=== PATIENT | female | born 1965 | race Caucasian/White ===

== ENCOUNTER 2017-08-15 22:48 | Emergency (ER) | payer SELFPAY ==
--- NOTE | 2017-08-16 05:02 | Emergency Department Report ---
ED Headache HPI - General Chief Complaint: Headache Stated Complaint: HEADACHE/ST ELEVATION Time Seen by Provider: 08/16/17 04:50 - History of Present Illness Initial Comments: Patient is 51 years old female is here for hypertension presented to the ER with a chief complaint of pressure in her head and left subconjunctival hemorrhage. Patient stated that her headache is similar to what she had before but she is worried about the bleeding that she having had left eye. Patient denied any visual disturbances or decrease vision. She denied any weakness, numbness or tingling sensation, bowel or bladder incontinence. No fever or stiff neck. Timing/Duration: 24 hours Quality: moderate Head Injury Location: global Recent Head Trauma: no recent headache/trauma, frequent headaches Modifying Factors: worse with: cold therapy, exposure to light, immobilization, medication, movement, rest, other Associated Symptoms: denies: denies symptoms, confusion, fatigue, facial pain, fever/chills, flushing, loss of consciousness, nausea/vomiting, nasal congestion , nasal drainage, numbness in legs/feet, rash, seizures, sinus infection, stiff neck, vision changes, weakness, other Allergies/Adverse Reactions: Allergies No Known Allergies Allergy (Unverified 08/15/17 23:12) ED Review of Systems ROS: Stated complaint: HEADACHE/ST ELEVATION Other details as noted in HPI Comment: All other systems reviewed and negative Constitutional: denies: chills, fever Eyes: denies: eye pain, eye discharge, vision change Respiratory: denies: cough, shortness of breath Cardiovascular: denies: chest pain, palpitations, dyspnea on exertion Gastrointestinal: denies: abdominal pain, nausea, vomiting, diarrhea, constipation, hematemesis, melena, hematochezia Skin: denies: rash, lesions, change in color, change in hair/nails Neurological: headache. denies: weakness, numbness, paresthesias, confusion, abnormal gait ED Past Medical Hx - Past Medical History Previous Medical History?: Yes Hx Hypertension: Yes (h/o hypotension also) Additional medical history: compression in neck and spine s/p head injury 2013 - Surgical History Past Surgical History?: Yes Additional Surgical History: x1 - Social History Smoking Status: Never Smoker Substance Use Type: None ED Physical Exam - General Limitations: No Limitations General appearance: alert, in no apparent distress - Head Head exam: Present: atraumatic, normocephalic, normal inspection - Eye Eye exam: Present: other (subconjunctival hemorrhage left eye.) - ENT ENT exam: Present: normal exam, normal orophraynx, mucous membranes moist - Neck Neck exam: Present: normal inspection, full ROM. Absent: tenderness, meningismus, lymphadenopathy, thyromegaly - Respiratory Respiratory exam: Present: normal lung sounds bilaterally. Absent: respiratory distress, wheezes, rales, rhonchi, stridor, decreased breath sounds, prolonged expiratory - Cardiovascular Cardiovascular Exam: Present: regular rate, normal rhythm, normal heart sounds - GI/Abdominal GI/Abdominal exam: Present: soft, normal bowel sounds. Absent: distended, tenderness, guarding, rebound, rigid, organomegaly, mass, bruit, pulsatile mass , hernia - Extremities Exam Extremities exam: Present: normal inspection, full ROM, normal capillary refill - Back Exam Back exam: Present: normal inspection, full ROM. Absent: tenderness, CVA tenderness (R), CVA tenderness (L), muscle spasm, paraspinal tenderness, vertebral tenderness, rash noted - Neurological Exam Neurological exam: Present: alert, oriented X3, CN II-XII intact, normal gait, reflexes normal. Absent: motor sensory deficit - Skin Skin exam: Present: warm, intact, normal color ED Course Vital Signs 08/15/17 23:12 Temperature 97.4 F L Pulse Rate 64 Respiratory 18 Rate Blood Pressure 113/73 O2 Sat by Pulse 96 Oximetry Critical care attestation.: If time is entered above; I have spent that time in minutes in the direct care of this critically ill patient, excluding procedure time. ED Disposition Clinical Impression: Headache, Subconjunctival hemorrhage Disposition: DC-01 TO HOME OR SELFCARE Is pt being admited?: No Condition: Stable Instructions: Subconjunctival Hemorrhage (ED) Referrals: PRIMARY CARE, [Primary Care Provider] - 3-5 Days
[2017-08-16 05:52] VITALS: BP 101/57
[2017-08-16] MEDS ORDERED: TORADOL ONE (06:09)
[2017-08-16] MEDS ORDERED: TORADOL IV ONE (06:16)
--- NOTE | 2017-08-17 13:54 | Cat Scan Report ---
FINAL REPORT EXAM: CT HEAD/BRAIN WO CON HISTORY: "pressure in head", h/o head injury TECHNIQUE: CT evaluation was performed of the head without the use of intravenous contrast administration. PRIORS: None. FINDINGS: Normal density, size and configuration of the brain parenchyma and CSF containing spaces. No evidence of acute hemorrhage. no mass effect, edema or shift of midline structures. Visualized paranasal sinuses are clear. No pathologic fluid collection. Calvarium is normal. IMPRESSION: No CT evidence of acute intracranial process. COMMENT: If continued symptoms, consider dedicated MRI of the brain for further evaluation.
== END 2017-08-16 06:19 | disposition home or self-care (01) ==
LOC: ED 22:48
DX: H11.32 Conjunctival hemorrhage, left eye (principal); I10 Essential (primary) hypertension
CPT/HCPCS: 70450; 96374; 99283; J1885

== ENCOUNTER 2020-07-27 16:25 | Emergency (ER) | payer MEDICARE, OTHER ==
--- NOTE | 2020-07-27 16:49 | Emergency Department Report ---
ED General Adult HPI - General Stated complaint: CHEST PAIN Time Seen by Provider: 07/27/20 16:49 - History of Present Illness Initial comments: Patient is a 54-year-old female who presents emergency department for evaluation of mild substernal chest pressure x2 hours which began while sitting. Patient notes similar episodes the past 3 days. Patient states she initially called her metal solderer, Dr. Hoyt in [place], and was told not to go to the emergency department and consequently waited 2-3 more days. Patient denies dyspnea, denies fever, denies cough. - Related Data Home Medications Medication Instructions Recorded Confirmed Last Taken AtorvaSTATin [Lipitor] 80 mg PO QHS 07/27/20 07/27/20 Unknown Clopidogrel [Plavix] 75 mg PO QDAY 07/27/20 07/27/20 Unknown ISOSORBIDE MONOnitrate [Imdur ER] 50 mg PO QDAY 07/27/20 07/27/20 Unknown atenoloL [Tenormin] 25 mg PO Q12H 07/27/20 07/27/20 Unknown Previous Rx's Medication Instructions Recorded Last Taken Type Aspirin EC [Halfprin EC] 81 mg PO QDAY #30 tablet 12/26/17 Unknown Rx Allergies Allergy/AdvReac Type Severity Reaction Status Date / Time No Known Allergies Allergy Unverified 08/15/17 23:12 ED Review of Systems ROS: Stated complaint: CHEST PAIN Other details as noted in HPI Comment: All other systems reviewed and negative ED Past Medical Hx - Past Medical History Hx Hypertension: Yes (h/o hypotension also) Hx Heart Attack/AMI: Yes (pacemaker placed) Additional medical history: compression in neck and spine s/p head injury 03/2014 - Surgical History Hx Pacemaker: Yes Additional Surgical History: x1 - Social History Smoking Status: Never Smoker - Medications Home Medications: Home Medications Medication Instructions Recorded Confirmed Last Taken Type Aspirin EC [Halfprin EC] 81 mg PO QDAY #30 tablet 12/26/17 07/27/20 Unknown Rx AtorvaSTATin [Lipitor] 80 mg PO QHS 07/27/20 07/27/20 Unknown History Clopidogrel [Plavix] 75 mg PO QDAY 07/27/20 07/27/20 Unknown History ISOSORBIDE MONOnitrate [Imdur ER] 50 mg PO QDAY 07/27/20 07/27/20 Unknown History atenoloL [Tenormin] 25 mg PO Q12H 07/27/20 07/27/20 Unknown History ED Physical Exam - General Limitations: No Limitations General appearance: alert, in no apparent distress - Head Head exam: Present: atraumatic, normocephalic - Eye Eye exam: Present: normal appearance - ENT ENT exam: Present: mucous membranes moist - Neck Neck exam: Present: normal inspection - Respiratory Respiratory exam: Present: normal lung sounds bilaterally. Absent: respiratory distress - Cardiovascular Cardiovascular Exam: Present: regular rate, normal rhythm - GI/Abdominal GI/Abdominal exam: Present: soft, normal bowel sounds - Extremities Exam Extremities exam: Present: normal inspection - Back Exam Back exam: Present: normal inspection - Neurological Exam Neurological exam: Present: alert, oriented X3 - Psychiatric Psychiatric exam: Present: normal affect, normal mood - Skin Skin exam: Present: warm, dry, intact, normal color. Absent: rash ED Course Vital Signs 07/27/20 07/27/20 07/27/20 17:35 17:58 18:00 Temperature 98.0 F Pulse Rate 68 67 73 Respiratory 12 21 Rate Blood Pressure 108/75 117/75 Blood Pressure 108/75 [Left] O2 Sat by Pulse 99 98 Oximetry 07/27/20 07/27/20 07/27/20 18:15 18:30 18:45 Temperature Pulse Rate 64 65 61 Respiratory 19 19 21 Rate Blood Pressure 116/78 116/78 105/73 Blood Pressure [Left] O2 Sat by Pulse 97 96 Oximetry 07/27/20 07/27/20 07/27/20 19:00 19:15 19:33 Temperature Pulse Rate 63 Respiratory 20 Rate Blood Pressure 105/73 112/72 112/72 Blood Pressure [Left] O2 Sat by Pulse 98 99 Oximetry 07/27/20 23:10 Temperature Pulse Rate 68 Respiratory 17 Rate Blood Pressure Blood Pressure [Left] O2 Sat by Pulse 99 Oximetry - Reevaluation(s) Reevaluation #1: 07/28/20 11:50 Patient chest pain-free several moments after ER arrival after being given Toradol and remains chest pain-free throughout entirety of remaining evaluation. Reevaluation #2: 07/28/20 11:51 Patient reevaluated and remains in no acute distress. Continues to deny chest pain or shortness of breath. Has upcoming appointment with cardiology for follow-up. ED Medical Decision Making - Lab Data Result diagrams: 07/27/20 17:16 07/27/20 17:16 Labs 07/27/20 07/27/20 07/27/20 17:16 17:16 17:16 WBC 9.7 RBC 4.67 Hgb 13.4 Hct 40.4 MCV 87 MCH 29 MCHC 33 RDW 13.9 Plt Count 294 Lymph % (Auto) 18.8 [place] % (Auto) 7.7 H Eos % (Auto) 3.0 Baso % (Auto) 0.6 Lymph # (Auto) 1.8 [place] # (Auto) 0.7 Eos # (Auto) 0.3 Baso # (Auto) 0.1 Seg Neutrophils % 69.9 Seg Neutrophils # 6.8 PT 12.7 INR 0.96 D-Dimer 140.38 Sodium 140 Potassium 4.3 Chloride 103.0 Carbon Dioxide 27 Anion Gap 14 BUN 15 Creatinine 0.7 Estimated GFR > 60 BUN/Creatinine Ratio 21 Glucose 110 H Calcium 8.9 Total Bilirubin 0.20 AST 24 ALT 32 Alkaline Phosphatase 150 H Troponin T < 0.010 NT-Pro-B Natriuret Pep Total Protein 7.0 Albumin 4.0 Albumin/Globulin Ratio 1.3 Lipase 24 07/27/20 19:16 WBC RBC Hgb Hct MCV MCH MCHC RDW Plt Count Lymph % (Auto) [place] % (Auto) Eos % (Auto) Baso % (Auto) Lymph # (Auto) [place] # (Auto) Eos # (Auto) Baso # (Auto) Seg Neutrophils % Seg Neutrophils # PT INR D-Dimer Sodium Potassium Chloride Carbon Dioxide Anion Gap BUN Creatinine Estimated GFR BUN/Creatinine Ratio Glucose Calcium Total Bilirubin AST ALT Alkaline Phosphatase Troponin T < 0.010 NT-Pro-B Natriuret Pep 64.23 Total Protein Albumin Albumin/Globulin Ratio Lipase Vital Signs 07/27/20 07/27/20 07/27/20 17:35 17:58 18:00 Temperature 98.0 F Pulse Rate 68 67 73 Respiratory 12 21 Rate Blood Pressure 108/75 117/75 Blood Pressure 108/75 [Left] O2 Sat by Pulse 99 98 Oximetry 07/27/20 07/27/20 07/27/20 18:15 18:30 18:45 Temperature Pulse Rate 64 65 61 Respiratory 19 19 21 Rate Blood Pressure 116/78 116/78 105/73 Blood Pressure [Left] O2 Sat by Pulse 97 96 Oximetry 07/27/20 07/27/20 07/27/20 19:00 19:15 19:33 Temperature Pulse Rate 63 Respiratory 20 Rate Blood Pressure 105/73 112/72 112/72 Blood Pressure [Left] O2 Sat by Pulse 98 99 Oximetry 07/27/20 23:10 Temperature Pulse Rate 68 Respiratory 17 Rate Blood Pressure Blood Pressure [Left] O2 Sat by Pulse 99 Oximetry - EKG Data -: EKG Interpreted by Me (Sinus rhythm at 72, no ST-T changes, normal QRS) - Radiology Data Radiology results: report reviewed [address] [address] XRay Report Signed Patient: AGUSTIN SUAREZ MR#: [id number] : 1965 Acct:[id number] Age/Sex: 54 / F ADM Date: 07/27/20 Loc: ED Attending Dr: Ordering Physician: IGNNY BARROSO MD Date of Service: 07/27/20 Procedure(s): XR chest 1V ap Accession Number(s): [id number] cc: GINNY BARROSO MD Fluoro Time In Minutes: CHEST 1 VIEW 07/27/2020 5:17 PM INDICATION / CLINICAL INFORMATION: Chest Pain. COMPARISON: 12/24/2017 FINDINGS: SUPPORT DEVICES: None. HEART / MEDIASTINUM: Stable. LUNGS / PLEURA: Chronic left hemidiaphragm elevation with obscuration of the left costophrenic angle suggesting a small pleural effusion and mild left basilar pulmonary airspace disease. No pneumothorax. ADDITIONAL FINDINGS: No significant additional findings. IMPRESSION: 1. Mild left pleural-parenchymal disease. Findings could represent aspiration or pneumonia. Recommend clinical correlation and continued follow-up until resolution. Signer Name: Shelly Connelly MD Signed: 07/27/2020 5:32 PM Workstation Name: [id number] Transcribed By: RH Dictated By: SHELLY CONNELLY III Electronically Authenticated By: SHELLY CONNELLY III Signed Date/Time: 07/27/201731 DD/ 29 TD/TT: [address] [address] Cat Scan Report Signed Patient: AGUSTIN SUAREZ MR#: [id number] : 1965 Acct:[id number] Age/Sex: 54 / F ADM Date: 07/27/20 Loc: ED Attending Dr: Ordering Physician: GINNY BARROSO MD Date of Service: 07/27/20 Procedure(s): CT chest wo con Accession Number(s): [id number] cc: GINNY BARROSO MD CT CHEST WITHOUT CONTRAST INDICATION / CLINICAL INFORMATION: abnormal chest xr. TECHNIQUE: Axial CT images were obtained through the chest without contrast. All CT scans at this location are performed using CT dose reduction for ALARA by means of automated exposure control. COMPARISON: Chest radiograph from 08/08/2020. FINDINGS: THORACIC AORTA: No significant abnormality. HEART: No significant abnormality. MEDIASTINUM / AILYN: No significant thoracic lymphadenopathy. LUNGS/PLEURA: 1.6 cm noncalcified pulmonary nodule in the left upper lobe (series 2 image 50). This may be continuous with the pulmonary vein, possibly reflecting a pulmonary varix. Tiny perifissural nodule on the right likely reflects an intrapulmonary lymph node . No additional suspicious pulmonary nodule or mass. There is left basilar volume loss related to chronic elevation of the left hemidiaphragm. No acute interstitial or airspace disease. No pleural effusion or pneumothorax. ADDITIONAL CHEST FINDINGS: None. UPPER ABDOMEN: No significant abnormality. SKELETAL SYSTEM: No significant abnormality. IMPRESSION: 1. No acute findings in the chest. 2. 1.6 cm nodular density in the left upper lobe. This may represent a pulmonary varix. Comparison to outside imaging may be helpful. If no prior imaging is available, consider contrast-enhanced CT of the chest. 3. Other incidental findings as above. Signer Name: Deepak Schmitt MD Signed: 07/27/2020 8:17 PM Workstation Name: [id number] Transcribed By: TIGIST Dictated By: DEEPAK SCHMITT MD Electronically Authenticated By: DEEPAK SCHMITT MD Signed Date/Time: 07/27/202016 DD/ 06 TD/TT: [facility] [address] [place] [address] Cat Scan Report Signed Patient: AGUSTIN SUAREZ MR#: [id number] : 1965 Acct:[id number] Age/Sex: 54 / F ADM Date: 07/27/20 Loc: ED Attending Dr: Ordering Physician: JORDAN SAM MD Date of Service: 07/27/20 Procedure(s): CT chest w con Accession Number(s): [id number] cc: JORDAN SAM MD CT CHEST WITH CONTRAST INDICATION / CLINICAL INFORMATION: Poss pulmonary varix in L.U.L. on noncontrast CT. TECHNIQUE: Axial CT images were obtained through the chest after 100 mL Omnipaque [address] scans at this location are performed using CT dose reduction for ALARA by means of automated exposure control. COMPARISON: Noncontrast CT earlier on 07/27/20 FINDINGS: HEART: No significant abnormality. CORONARY ARTERY CALCIFICATION: None. THORACIC AORTA: No significant abnormality. MEDIASTINUM / AILYN: No significant abnormality. PLEURA: No pleural effusion. No pneumothorax. LUNGS: No acute air space or interstitial disease. Moderate elevation of the left hemidiaphragm is unchanged with lung base atelectasis. 1.6 cm round nodule in the left upper lobe as seen on the noncontrast study demonstrates no significant enhancement and is unlikely to represent pulmonary varix. ADDITIONAL FINDINGS: Implantable cardiac loop recorder in the anterior left chest wall. UPPER ABDOMEN: No significant abnormality. SKELETAL SYSTEM: No significant abnormality. IMPRESSION: 1. 1.6 cm pulmonary nodule in the left upper lobe which does not have characteristics of pulmonary varix. Single pulmonary nodule(s) in the left upper lobe measuring 16 mm with solid characteristics. - Recommendation according to Fleischner Society 2017 Guidelines: Low Risk or High Risk Patient: Consider CT at 3 months, PET/CT, or tissue sampling. Signer Name: Geri Hinojosa MD Signed: 07/27/2020 10:38 PM Workstation Name: [id number] Transcribed By: DT Dictated By: Goyo Hinojosa MD Electronically Authenticated By: Goyo Hinojosa MD Signed Date/Time: 07/27/202237 DD/ 28 TD/TT: - Medical Decision Making Previous records: Chronic chest pain (negative troponin, no ischemic ECG changes) Stress test 12/2016 anterior apical segment ischemia with associated anterior apical hypokinesis, and the EF on that stress was 33% Cath 12/2016 at [facility] Normal LM Normal prox LAD, Mild LIs mid LAD, diffuse moderate distal LAD and D1 disease Mild LIs LCx 20% ostial RCA, mild LIs mid RCA, moderate diffuse distal RCA Dz; R-dominat. High anterior RCA takeoff LVEDP = 10mmHg LVEF = 60%, normal wall motion No AoV gradient Echo 12/2016 at [facility] 1. Normal left ventricular size, structure and wall thicknesses; with normal systolic and diastolic function. 2. Left ventricular ejection fraction is 60.9%. 3. Normal right ventricular size and wall thickness with normal function. 4. The estimated right ventricular systolic pressure is normal at 20.7 mmHg. 5. Mild mitral valve regurgitation. 6. No pericardial effusion noted. History of hypotension in the past According to [place] records, her blood pressure tends to run borderline Patient with history of small vessel disease per previous cardiac cath treated with medical therapy. Critical care attestation.: If time is entered above; I have spent that time in minutes in the direct care of this critically ill patient, excluding procedure time. ED Disposition Clinical Impression: Chest pain Disposition: DC-01 TO HOME OR SELFCARE Is pt being admited?: No Condition: Stable Instructions: Nonspecific Chest Pain, Adult, Chest Pain (ED) Additional Instructions: Follow-up with cardiology in 1-2 days for re-evaluation. Return to the ER for worsening symptoms. Referrals: RENA HOYT [Other] - 3-5 Days JOYCELYN ELLISON MD [Staff Physician] - 3-5 Days (Dr. Ellison is a negative stripper. Please follow-up with him for further evaluation of your left upper lobe pul monary nodule) SERJIO SMYTH MD [Staff Physician] - 3-5 Days (Dr Smyth is a primary physician. Please follow-up with him to be established as a patient) Heart Score - HEART Score History: Slightly suspicious EKG: Normal Age: 45-65 Risk factors: 1-2 risk factors Troponin: < normal limit HEART Score: 2
[2020-07-27 17:36] LABS: Basophils # (Auto) 0.1 K/mm3 (0.0-0.1); Basophils % (Auto) 0.6 % (0.0-1.8); Eosinophils # (Auto) 0.3 K/mm3 (0.0-0.4); Hematocrit 40.4 % (30.3-42.9); Hemoglobin 13.4 gm/dl (10.1-14.3); Lymphocytes # (Auto) 1.8 K/mm3 (1.2-5.4); Lymphocytes % (Auto) 18.8 % (13.4-35.0); Mean Corpuscular HGB Conc 33 % (30-34); Mean Corpuscular Volume 87 fl (79-97); Monocytes # (Auto) 0.7 K/mm3 (0.0-0.8); Monocytes % (Auto) 7.7 % (0.0-7.3); Platelet Count 294 K/mm3 (140-440); Red Blood Count 4.67 M/mm3 (3.65-5.03); Red Cell Distribution Width 13.9 % (13.2-15.2)
--- NOTE | 2020-07-27 17:37 | XRay Report ---
CHEST 1 VIEW 07/27/2020 5:17 PM INDICATION / CLINICAL INFORMATION: Chest Pain. COMPARISON: 12/24/2017 FINDINGS: SUPPORT DEVICES: None. HEART / MEDIASTINUM: Stable. LUNGS / PLEURA: Chronic left hemidiaphragm elevation with obscuration of the left costophrenic angle suggesting a small pleural effusion and mild left basilar pulmonary airspace disease. No pneumothorax . ADDITIONAL FINDINGS: No significant additional findings. IMPRESSION: 1. Mild left pleural-parenchymal disease. Findings could represent aspiration or pneumonia. Recommend clinical correlation and continued follow-up until resolution. Signer Name: Sandeep Connelly MD Signed: 07/27/2020 5:32 PM Workstation Name: [id number]
[2020-07-27 18:00] LABS: Alanine Aminotransferase 32 units/L (7-56); Blood Urea Nitrogen 15 mg/dL (7-17); Calcium 8.9 mg/dL (8.4-10.2); Hemolysis Index 10
[2020-07-27 18:06] LABS: BUN/Creatinine Ratio 21
[2020-07-27 18:10] LABS: INR 0.96 (0.87-1.13)
[2020-07-27] MEDS ORDERED: KETOROLAC 30 MG/1 ML INJ IM ONE (18:11)
[2020-07-27 19:38] VITALS: BP 112/72
--- NOTE | 2020-07-27 20:21 | Cat Scan Report ---
CT CHEST WITHOUT CONTRAST INDICATION / CLINICAL INFORMATION: abnormal chest xr. TECHNIQUE: Axial CT images were obtained through the chest without contrast. All CT scans at this location are p erformed using CT dose reduction for ALARA by means of automated exposure control. COMPARISON: Chest radiograph from 08/08/2020. FINDINGS: THORACIC AORTA: No significant abnormality. HEART: No significant abnormality. MEDIASTINUM / AILYN: No significant thoracic lymphadenopathy. LUNGS/PLEURA: 1.6 cm noncalcified pulmonary nodule in the left upper lobe (series 2 image 50). This m ay be continuous with the pulmonary vein, possibly reflecting a pulmonary varix. Tiny perifissural no dule on the right likely reflects an intrapulmonary lymph node . No additional suspicious pulmonary n odule or mass. There is left basilar volume loss related to chronic elevation of the left hemidiaphra gm. No acute interstitial or airspace disease. No pleural effusion or pneumothorax. ADDITIONAL CHEST FINDINGS: None. UPPER ABDOMEN: No significant abnormality. SKELETAL SYSTEM: No significant abnormality. IMPRESSION: 1. No acute findings in the chest. 2. 1.6 cm nodular density in the left upper lobe. This may represent a pulmonary varix. Comparison to outside imaging may be helpful. If no prior imaging is available, consider contrast-enhanced CT of t he chest. 3. Other incidental findings as above. Signer Name: Carlyle Schmitt MD Signed: 07/27/2020 8:17 PM Workstation Name: [id number]
--- NOTE | 2020-07-27 22:42 | Cat Scan Report ---
CT CHEST WITH CONTRAST INDICATION / CLINICAL INFORMATION: Poss pulmonary varix in L.U.L. on noncontrast CT. TECHNIQUE: Axial CT images were obtained through the chest after 100 mL Omnipaque [address] IV contrast. Al l CT scans at this location are performed using CT dose reduction for ALARA by means of automated exp osure control. COMPARISON: Noncontrast CT earlier on 07/27/20 FINDINGS: HEART: No significant abnormality. CORONARY ARTERY CALCIFICATION: None. THORACIC AORTA: No significant abnormality. MEDIASTINUM / AILYN: No significant abnormality. PLEURA: No pleural effusion. No pneumothorax. LUNGS: No acute air space or interstitial disease. Moderate elevation of the left hemidiaphragm is un changed with lung base atelectasis. 1.6 cm round nodule in the left upper lobe as seen on the noncont rast study demonstrates no significant enhancement and is unlikely to represent pulmonary varix. ADDITIONAL FINDINGS: Implantable cardiac loop recorder in the anterior left chest wall. UPPER ABDOMEN: No significant abnormality. SKELETAL SYSTEM: No significant abnormality. IMPRESSION: 1. 1.6 cm pulmonary nodule in the left upper lobe which does not have characteristics of pulmonary va silver. Single pulmonary nodule(s) in the left upper lobe measuring 16 mm with solid characteristics. - Recommendation according to Fleischner Society 2017 Guidelines: Low Risk or High Risk Patient: Cons ider CT at 3 months, PET/CT, or tissue sampling. Signer Name: Geri Hinojosa MD Signed: 07/27/2020 10:38 PM Workstation Name: [id number]
== END 2020-07-27 23:10 | disposition home or self-care (01) ==
LOC: ED 16:25
DX: R07.89 Other chest pain (principal); I25.2 Old myocardial infarction; I10 Essential (primary) hypertension; Z98.890 Other specified postprocedural states; Z79.899 Other long term (current) drug therapy
CPT/HCPCS: 36415; 71045; 71250; 71260; 80053; 83690; 83880; 84484; 85025; 85379; 85610; 93005; 96372; 99285; J1885; Q9967

== ENCOUNTER 2021-03-07 20:36 | Emergency (ER) | payer MEDICARE ==
[2021-03-07 22:21] VITALS: BP 122/80
[2021-03-07] MEDS ORDERED: SODIUM CHLORIDE 0.9% 1000 ML 1,000 ML IV ONE (22:41)
[2021-03-07] MEDS ORDERED: ONDANSETRON 4 MG/2 ML INJ IV ONE (22:41)
[2021-03-07] MEDS ORDERED: MORPHINE 4 MG/1 ML INJ IV ONE (22:41)
--- NOTE | 2021-03-07 22:44 | Emergency Department Report ---
HPI - General Chief Complaint: Abdominal Pain Time Seen by Provider: 03/07/21 22:41 - HPI HPI: 55-year-old -Turkish female presents to the emergency department with complaint of left lower quadrant abdominal pain with radiation around the left flank and into the left mid to lower back. Overall this is been going on for the past 2 weeks, but it worsened today which is what prompted her to come in to be seen. Currently she says the pain is 9 out of 10 in intensity. It worsens sometimes with certain movements. No known alleviating factors. She has tried some Tylenol for her symptoms without any relief. She has a past medical history of previous AK in 2014 and has a loop recorder in place. No recent travel or sick contacts at home. She denies any fever, vaginal bleeding or discharge, dysuria, constipation, diarrhea, hematuria. ED Past Medical Hx - Past Medical History Previous Medical History?: Yes Hx Hypertension: Yes (h/o hypotension also) Hx Heart Attack/AMI: Yes (pacemaker placed) Additional medical history: compression in neck and spine s/p head injury 03/2014 - Surgical History Past Surgical History?: Yes Hx Pacemaker: Yes Additional Surgical History: x1 - Social History Smoking Status: Never Smoker - Medications Home Medications: Home Medications Medication Instructions Recorded Confirmed Last Taken Type Aspirin EC [Halfprin EC] 81 mg PO QDAY #30 tablet 12/26/17 07/27/20 Unknown Rx AtorvaSTATin [Lipitor] 80 mg PO QHS 07/27/20 07/27/20 Unknown History Clopidogrel [Plavix] 75 mg PO QDAY 07/27/20 07/27/20 Unknown History ISOSORBIDE MONOnitrate [Imdur ER] 50 mg PO QDAY 07/27/20 07/27/20 Unknown History atenoloL [Tenormin] 25 mg PO Q12H 07/27/20 07/27/20 Unknown History HYDROcodone/APAP 5-325 [[place] 1 each PO Q6HR PRN #10 tablet 03/08/21 Unknown Rx 5/325] ED Review of Systems ROS: Stated complaint: LEFT SIDE ABD/BACK PAIN Other details as noted in HPI Comment: All other systems reviewed and negative Constitutional: denies: chills, fever Eyes: denies: eye pain, vision change ENT: denies: ear pain, throat pain Respiratory: denies: cough, shortness of breath Cardiovascular: denies: chest pain, palpitations Gastrointestinal: abdominal pain. denies: vomiting, diarrhea, constipation Genitourinary: denies: dysuria, hematuria, discharge Musculoskeletal: back pain. denies: arthralgia Skin: denies: rash, lesions Neurological: denies: headache, weakness Physical Exam - Physical Exam Vital Signs: Vital Signs 03/07/21 22:17 Temperature 98.5 F Pulse Rate 79 Respiratory 20 Rate Blood Pressure 122/80 O2 Sat by Pulse 97 Oximetry Physical Exam: GENERAL: The patient is well-developed well-nourished. HENT: Normocephalic. Atraumatic. Patient has moist mucous membranes. EYES: Extraocular motions are intact. NECK: Supple. Trachea is midline. CHEST/LUNGS: Clear to auscultation. There is no respiratory distress noted. HEART/CARDIOVASCULAR: Regular. There is no tachycardia. There is no murmur. ABDOMEN: Abdomen is soft. Left-sided abdominal tenderness to palpation. Patient has normal bowel sounds. Obese habitus. SKIN: Skin is warm and dry. NEURO: The patient is awake, alert, and oriented. The patient is cooperative. The patient has no focal neurologic deficits. Normal speech. MUSCULOSKELETAL: There is no tenderness or deformity. There is no limitation range of motion. BACK: Bilateral CVA tenderness to palpation with left greater than right. ED Course Vital Signs 03/07/21 22:17 Temperature 98.5 F Pulse Rate 79 Respiratory 20 Rate Blood Pressure 122/80 O2 Sat by Pulse 97 Oximetry ED Medical Decision Making - Lab Data Result diagrams: 03/07/21 22:53 03/07/21 22:53 - Medical Decision Making This patient presents with a left lower quadrant abdominal pain that wraps around her left flank and to her back. Overall this has been going on for the past 2 weeks. It worsened today. On examination she does have some reproducible abdominal tenderness to palpation and CVA tenderness to palpation. The abdomen is soft, nondistended. Patient's labs are mostly unremarkable including CBC, metabolic panel, lipase and urinalysis. CT of the abdomen and pelvis with IV contrast shows some cholelithiasis, but otherwise no acute process. I do not think that the cholelithiasis is the cause of the patient's left lower quadrant abdominal and flank pain and is more of a incidental finding. The patient has been given some IV fluid resuscitation and IV analgesia with some improvement. Vital signs reassuring throughout her ED course including being afebrile. Patient will be discharged with outpatient referral for [place] [facility], as well as a referral for general surgery to follow-up regarding the cholelithiasis. She has been given a prescription for pain medication. She will return to the ER with any worsening of her symptoms or with any acute distress. Critical Care Time: No Critical care attestation.: If time is entered above; I have spent that time in minutes in the direct care of this critically ill patient, excluding procedure time. ED Disposition Clinical Impression: Left lower quadrant abdominal pain, Left flank pain Cholelithiasis Qualifiers: Cholelithiasis location: gallbladder Cholecystitis presence: without cholecystitis Biliary obstruction: without biliary obstruction Qualified Code(s): K80.20 - Calculus of gallbladder without cholecystitis without obstruction Disposition: HOME / SELF CARE / HOMELESS Is pt being admited?: No Condition: Stable Instructions: Cholelithiasis, Abdominal Pain, Adult, Abdominal Pain (ED) Additional Instructions: Please follow-up with a primary care physician in the next few days. I am giving you a referral for a local general surgeon, Dr. Suresh, to follow- up regarding your finding of cholelithiasis (gallstones). I do not necessary believe that the gallstones are the reason for your left lower quadrant abdominal and left flank pain. I am giving you a referral for [place] [facility] to follow-up regarding this abdominal pain. You have been prescribed a medication that is sedating and therefore should not be taken prior to driving, working, and responsible for children and in no way should be mixed with alcohol of any quantity. Return to the emergency department with any worsening of your symptoms, new or concerning symptoms not addressed during this current emergency department visit, or with any acute distress. Prescriptions: HYDROcodone/APAP 5-325 [[place] 5/325] 1 each PO Q6HR PRN #10 tablet PRN Reason: Pain Referrals: VINNIE SURESH MD [Staff Physician] - 3-5 Days [facility] [Provider Group] - 3-5 Days Time of Disposition: 01:41
[2021-03-07 23:17] LABS: Basophils # (Auto) 0.1 K/mm3 (0.0-0.1); Basophils % (Auto) 0.8 % (0.0-1.8); Eosinophils # (Auto) 0.3 K/mm3 (0.0-0.4); Eosinophils % (Auto) 2.7 % (0.0-4.3); Hematocrit 40.5 % (30.3-42.9); Hemoglobin 13.5 gm/dl (10.1-14.3); Lymphocytes # (Auto) 2.5 K/mm3 (1.2-5.4); Lymphocytes % (Auto) 22.3 % (13.4-35.0); Mean Corpuscular HGB Conc 33 % (30-34); Mean Corpuscular Volume 89 fl (79-97); Monocytes # (Auto) 0.7 K/mm3 (0.0-0.8); Monocytes % (Auto) 6.6 % (0.0-7.3); Platelet Count 327 K/mm3 (140-440); Red Blood Count 4.57 M/mm3 (3.65-5.03)
[2021-03-07 23:31] LABS: Alanine Aminotransferase 17 units/L (7-56); Albumin 3.7 g/dL (3.9-5); Blood Urea Nitrogen 16 mg/dL (7-17); Calcium 8.5 mg/dL (8.4-10.2); Hemolysis Index 5
[2021-03-07 23:34] LABS: BUN/Creatinine Ratio 23; Bilirubin,Direct < 0.2 mg/dL (0-0.2)
--- NOTE | 2021-03-08 00:25 | Cat Scan Report ---
CT abdomen pelvis w con INDICATION / CLINICAL INFORMATION: LLQ abd pain, L Flank pain, back pain. TECHNIQUE: Axial CT images were obtained through the abdomen and pelvis after IV contrast. All CT sc ans at this location are performed using CT dose reduction for ALARA by means of automated exposure c ontrol. COMPARISON: CT of the chest from 07/27/2020. FINDINGS: LOWER CHEST: Stable 1.6 cm noncalcified pulmonary nodule in the left upper lobe. There is left basila r volume loss with elevation of the right hemidiaphragm. LIVER: No significant abnormality GALLBLADDER/BILIARY TREE: Cholelithiasis. No evidence of cholecystitis. PANCREAS: No significant abnormality SPLEEN: No significant abnormality ADRENALS: No significant abnormality KIDNEYS / URETER: No significant abnormality URINARY BLADDER: No significant abnormality REPRODUCTIVE ORGANS: Calcified uterine fibroid. STOMACH / BOWEL: No significant abnormality. The appendix is not discretely seen, though there are no secondary signs of appendicitis. LYMPH NODES: No significant adenopathy. VASCULATURE: No significant abnormality. OTHER: No free air, free fluid, or focal fluid collection is identified. SKELETAL SYSTEM: No acute osseous findings. IMPRESSION: 1. No acute abnormality of the abdomen or pelvis. 2. Unchanged 1.6 cm solid left upper lobe pulmonary nodule. Prior recommendations are unchanged. Signer Name: Carlyle Schmitt MD Signed: 03/08/2021 12:20 AM Workstation Name: [id number]
[2021-03-08 01:28] LABS: Bilirubin,Urine NEG (Negative); Blood,Urine NEG (Negative); Color,Urine Yellow (Yellow); Mucus,Urine FEW /HPF; Protein,Urine <15 mg/dL mg/dL (Negative); Urobilinogen,Urine < 2.0 mg/dL (<2.0)
== END 2021-03-08 01:55 | disposition home or self-care (01) ==
LOC: ED 20:36
DX: R10.9 Unspecified abdominal pain (principal); K80.20 Calculus of gallbladder without cholecystitis without obstruction; Z86.79 Personal history of other diseases of the circulatory system; I10 Essential (primary) hypertension
CPT/HCPCS: 36415; 74177; 80048; 80076; 81001; 83690; 85025; 96361; 96374; 96375; 99284; J2270; J2405; J7030; Q9967

== ENCOUNTER 2021-03-26 08:59 | Outpatient (CLI) | payer MEDICARE ==
--- NOTE | 2021-03-26 10:25 | Ultrasound Report ---
LIMITED RUQ ABDOMINAL ULTRASOUND INDICATION / CLINICAL INFORMATION: EPIGASTRIC PAIN. COMPARISON: CT from 03/07/2021 FINDINGS: PANCREAS: Visualized portions of the pancreas are within normal limits. ABDOMINAL AORTA: No significant abnormality. IVC: No significant abnormality. LIVER: The liver measures 16.7 cm in length. The liver demonstrates a normal echogenicity and morpho logy. PORTAL VEIN: Normal hepatopedal blood flow in the main portal vein. GALLBLADDER: Small amount of sludge and stones within the gallbladder. Borderline wall thickening. No pericholecystic fluid. Negative sonographic Arellnao sign. BILE DUCTS: No significant abnormality. Common bile duct measures 3 mm. RIGHT KIDNEY: No significant abnormality visualized. FREE FLUID: None. ADDITIONAL FINDINGS: None. IMPRESSION: Small amount of sludge and stones within the gallbladder with borderline gallbladder wall thickening. However, there is no significant pericholecystic fluid and sonographic Arellano's sign is negative. Fi ndings are equivocal for acute cholecystitis. Recommend clinical correlation and consider further hilda luation with HIDA scan, as clinically indicated. Otherwise, no significant abnormality. Signer Name: Carlyle Schimtt MD Signed: 03/26/2021 10:21 AM Workstation Name: [id number]
== END 2021-03-26 09:00 | disposition home or self-care (01) ==
LOC: US 08:59
PROVIDERS: ATTEND Surgery
DX: K80.20 Calculus of gallbladder without cholecystitis without obstruction (principal)
CPT/HCPCS: 76705